=== PATIENT | male | born 1955 | race Caucasian/White ===

== ENCOUNTER 2024-10-11 19:29 | Emergency (ER) | payer MEDICARE, BC ==
[~2024-10-11] VITALS: Ht 172.7 cm; Wt 84.1 kg
[2024-10-11 20:15] LABS: IONIZED CALCIUM 4.5 MG/DL (4.5-5.3)
[2024-10-11] MEDS: NS (Normal Saline) 0.9% 1,000 ML IV ONE (20:18)
[2024-10-11 20:23] LABS: BASO # 0.1 10^3/uL (0.0-0.2); BASO % 0.4 % (0.0-1.0); EOS # 0.3 10^3/uL (0.0-0.5); EOS % 2.3 % (0.0-3.0); LYMPH # 2.7 10^3/uL (1.5-5.0); LYMPH % 21.6 % (24.0-44.0); MONO # 1.0 10^3/uL (0.0-0.8); MONO % 8.1 % (2.0-8.0); NEUTROPHILS # 8.4 10^3/uL (1.5-8.5); NEUTROPHILS % 67.1 % (36.0-66.0); PLATELET COUNT, AUTOMATED 271 10^3/uL (150-450)
[2024-10-11] MEDS: ATROPINE SULF 1 MG/10 ML SYRINGE IV STA (20:31)
[2024-10-11 20:50] LABS: CK-MB VALUE MASS 1.0 NG/ML (<3.6)
[2024-10-11 20:52] LABS: CALCIUM LEVEL 8.5 MG/DL (8.3-10.6); CARBON DIOXIDE LEVEL 26.0 MMOL/L (20-31); CHLORIDE LEVEL 102.0 MMOL/L (98-107); CREATININE FOR GFR 2.16 MG/DL (0.70-1.30); GLOMERULAR FILTRATION RATE 32.1 (>42); MAGNESIUM LEVEL 2.0 MG/DL (1.8-2.4); POTASSIUM SERUM 4.2 MMOL/L (3.5-5.1); SODIUM LEVEL 140.0 MMOL/L (136-145)
[2024-10-11 20:54] LABS: CPK CREATINE PHOSPHOKINASE 102.0 U/L (46-171); MB/CK RELATIVE INDEX 0.98 (< OR =4)
[2024-10-11] MEDS: [UNRECOGNIZED DRUG - OTHER] IV ONE (21:03)
[2024-10-11] MEDS: NS 0.9% IV ONE (21:03)
[2024-10-11 23:40] VITALS: BP 123/63; TEMP 97.6; O2SAT 98
[2024-10-11 23:51] LABS: KETONE, URINE AUTO RFX NEGATIVE (NEGATIVE); MUCUS, URINE RFX SMALL (NEGATIVE); RBC, URINE AUTO RFX 10 /HPF (0-3); SQUAM EPITHELIAL CELL UR AURFX 1 /HPF (0-6)
[2024-10-11 23:53] LABS: LEUKOCYTE ESTERASE UR AUTO RFX 2+ (NEGATIVE); NITRITE, URINE AUTO RFX POSITIVE (NEGATIVE); WBC, URINE AUTO RFX 134 /HPF (0-3)
[2024-10-12] MEDS: UNRESOLVED CLARIFICATION ENTRY XX STA (00:07)
[2024-10-12] MEDS: cefTRIAXone SOD 1 GM in DEXTROSE 5% (D5W) ADV/MINI-BAG 50 ML IV ONE (00:08)
[2024-10-12] MEDS ORDERED: CEFP200T PO (00:23)
== END 2024-10-12 00:58 | disposition left against medical advice (07) ==
LOC: M ED 19:29
DX: N39.0 Urinary tract infection, site not specified (principal); A41.9 Sepsis, unspecified organism; N17.9 Acute kidney failure, unspecified; J98.11 Atelectasis; E03.9 Hypothyroidism, unspecified; F32.A Depression, unspecified; Z86.73 Personal history of transient ischemic attack (TIA), and cerebral infarction without residual deficits; Z79.899 Other long term (current) drug therapy; Z53.9 Procedure and treatment not carried out, unspecified reason
CPT/HCPCS: 70450; 71045; 80048; 81001; 82330; 82550; 82553; 83735; 84443; 84484; 85025; 87088; 87186; 93005; 96361; 96374; 96375; 99284; J0461; J0696